=== PATIENT | female | born 1960 | race African-American/Black ===

== ENCOUNTER 2022-05-10 14:18 | Emergency (ER) | payer OTHER ==
[~2022-05-10] VITALS: Ht 165.1 cm; Wt 62.0 kg
[2022-05-10 18:31] LABS: BASOPHILS % 0.3 % (0.0-2.0); HEMATOCRIT. 39.7 % (36.0-48.0); MEAN CORPUSCULAR HEMOGLOBIN 29.7 pg (28.0-32.0); MEAN CORPUSCULAR VOLUME 90.8 fL (81.0-99.0); MEAN PLATELET VOLUME 7.6 fl (7.4-10.4); MONOCYTES % 8.8 % (2.0-8.0); NEUTROPHILS % 69.9 % (40.0-76.0); PLATELET 283 x1000/uL (130-400); RED BLOOD CELL COUNT 4.38 mill/uL (4.2-5.4); RED CELL DISTRIBUTION WIDTH 13.8 % (11.6-14.6)
[2022-05-10 18:37] LABS: CHLORIDE 111 mEq/L (98-107)
[2022-05-10 18:39] LABS: PROTHROMBIN TIME 10.8 sec (9.6-11.0)
[2022-05-10 19:59] LABS: T4 FREE 0.97 ng/dL (0.76-1.46)
[2022-05-10 20:03] LABS: CLARITY URINE CLOUDY (CLEAR); COLOR URINE DARK YELLOW (YELLOW); KETONES URINE TRACE (NEGATIVE); LEUKOCYTE ESTERASE URINE 2+ (NEGATIVE); NITRITE URINE NEGATIVE (NEGATIVE); OCCULT BLOOD URINE 3+ (NEGATIVE); PROTEIN URINE 2+ (NEGATIVE); SPECIFIC GRAVITY URINE 1.027 (1.005-1.030)
[2022-05-10] MEDS ORDERED: POLY17PO3 MT (20:41)
[2022-05-10 20:50] VITALS: BP 112/80
== END 2022-05-10 20:50 | disposition home or self-care (01) ==
LOC: ER 14:18
DX: N94.6 Dysmenorrhea, unspecified (principal); K59.00 Constipation, unspecified; R00.0 Tachycardia, unspecified; I10 Essential (primary) hypertension; E05.90 Thyrotoxicosis, unspecified without thyrotoxic crisis or storm; Z79.899 Other long term (current) drug therapy
CPT/HCPCS: 36415; 71045; 80053; 81003; 84439; 84443; 84481; 85025; 86850; 86900; 93005; 99285